=== PATIENT | female | born 1955 | race Caucasian/White ===

== ENCOUNTER 2023-10-11 13:24 | Emergency (ER) | payer MEDICARE, BC ==
[2023-10-11 13:47] VITALS: BP 124/43; PULSE 80
[2023-10-11 14:10] LABS: BASOPHILS ABSOLUTE AUTO 0.04 10^3/uL (0.00-0.50); BASOPHILS PERCENT AUTO 0.4 % (0-1); EOSINOPHILS ABSOLUTE AUTO 0.14 10^3/uL (0.00-1.50); EOSINOPHILS PERCENT AUTO 1.4 % (0-6); HEMATOCRIT 37.4 % (37.0-47.0); HEMOGLOBIN 11.4 g/dL (12.0-16.0); IMMATURE GRAN ABSOLUTE AUTO 0.03 10^3/uL (0.00-0.49); IMMATURE GRAN PERCENT AUTO 0.3 % (0.0-4.9); LYMPHOCYTES ABSOLUTE AUTO 1.38 10^3/uL (0.60-5.00); LYMPHOCYTES PERCENT AUTO 13.6 % (24-44); MEAN CORPUSCULAR HEMOGLOBIN 29.3 pg (27.0-32.0); MEAN CORPUSCULAR HGB CONC 30.5 g/dL (32.0-36.0); MEAN CORPUSCULAR VOLUME 96.1 fL (83.0-97.0); MONOCYTES ABSOLUTE AUTO 0.99 10^3/uL (0.00-1.50); MONOCYTES PERCENT AUTO 9.7 % (0-10); NEUTROPHILS ABSOLUTE AUTO 7.58 x10^3/uL (1.80-8.00); NEUTROPHILS PERCENT AUTO 74.6 % (41-71); PLATELET COUNT,PLT 322 10^3/uL (150-400); RED BLOOD CELL COUNT 3.89 x10^6/uL (4.00-5.50); WHITE BLOOD CELL COUNT,WBC 10.2 10^3/uL (4.0-11.0)
[2023-10-11 14:24] LABS: ALBUMIN 3.2 g/dL (3.4-5.0); BILIRUBIN TOTAL 0.3 mg/dL (0.0-1.0); C-REACTIVE PROTEIN 3.35 mg/dL (<=0.50); CALCIUM 9.9 mg/dL (8.4-10.1); CREATININE 1.9 mg/dL (0.6-1.0); EST CRCL DRUG DOSING (CG) 23.44 mL/min; POTASSIUM,K 4.5 mEq/L (3.5-5.0); PROTEIN TOTAL,TP 7.4 g/dL (6.4-8.2)
[2023-10-11 15:06] LABS: APPEARANCE,URINE CLEAR (CLEAR); BILIRUBIN,URINE NEGATIVE (NEGATIVE); COLOR,URINE YELLOW (YELLOW); GLUCOSE,URINE 250 mg/dL (NEGATIVE); KETONES,URINE NEGATIVE (NEGATIVE); LEUKOCYTE ESTERASE,URINE TRACE (NEGATIVE); NITRITE,URINE NEGATIVE (NEGATIVE); OCCULT BLOOD,URINE NEGATIVE (NEGATIVE); PH,URINE 5.5 (4.5-8.0); PROTEIN,URINE NEGATIVE (NEGATIVE); UROBILINOGEN,URINE 0.2 EU/dL (0.2-1.0)
[2023-10-11 15:16] LABS: BACTERIA,URINE OCCASIONAL /HPF (NOT SEEN); EPITHELIAL CELLS,URINE NOT SEEN /HPF (NOT SEEN); MUCUS,URINE OCCASIONAL /HPF (NOT SEEN); RBC,URINE NOT SEEN /HPF (0-5)
[2023-10-11] MEDS: Sodium Chloride 0.9% 500 ML IV SCH (15:45)
== END 2023-10-11 17:05 | disposition home or self-care (01) ==
LOC: CC.ED 13:24
DX: R53.1 Weakness (principal); E86.0 Dehydration; L08.9 Local infection of the skin and subcutaneous tissue, unspecified; I10 Essential (primary) hypertension; E78.00 Pure hypercholesterolemia, unspecified; E10.9 Type 1 diabetes mellitus without complications; E03.9 Hypothyroidism, unspecified; Z79.890 Hormone replacement therapy; Z79.899 Other long term (current) drug therapy; Z79.4 Long term (current) use of insulin; Z88.1 Allergy status to other antibiotic agents
CPT/HCPCS: 36415; 70450; 71045; 80053; 81001; 83735; 84484; 85025; 86140; 87086; 93005; 96360; 99285-25; C1758; J7040